=== PATIENT | male | born 1995 ===

== ENCOUNTER 2024-06-15 12:54 | Outpatient (CLI) | payer OTHER, SELFPAY ==
--- NOTE | 2024-06-15 13:26 | XRR_ITS ---
PROCEDURE INFORMATION: Exam: XR Right Wrist Exam date and time: 06/15/2024 1:35 PM Age: 29 years old Clinical indication: Pain; Wrist; Right; Additional info: Arthritis TECHNIQUE: Imaging protocol: Radiologic exam of the right wrist. Views: 1 or 2 views. COMPARISON: No relevant prior studies available. FINDINGS: Bones/joints: Alignment is normal. Joint spaces are preserved. No acute fracture. No osteophytes. Soft tissues: Visible soft tissues are unremarkable. XR/XR wrist RT 2V [id number] IMPRESSION: No pathologic findings.
--- NOTE | 2024-06-15 13:26 | XRR_ITS ---
PROCEDURE INFORMATION: Exam: XR Left Wrist Exam date and time: 06/15/2024 1:35 PM Age: 29 years old Clinical indication: Pain; Wrist; Bilateral; Additional info: Arthritis TECHNIQUE: Imaging protocol: Radiologic exam of the left wrist. Views: 1 or 2 views. COMPARISON: No relevant prior studies available. FINDINGS: Bones/joints: Mild ulna minus variance. Alignment is otherwise normal. Joint spaces are preserved. No osteophytes. No acute fracture. Soft tissues: Visible soft tissues are unremarkable. XR/XR wrist LT 2V [id number] IMPRESSION: 1. No sign of arthritis. 2. Mild ulna minus variance. This is a predisposing factor for avascular necrosis of the lunate which is not seen on this exam.
== END 2024-06-15 12:55 | disposition home or self-care (01) ==
PROVIDERS: PCP Chiropractor; Visit Provider Chiropractor
DX: M19.031 Primary osteoarthritis, right wrist (principal); M19.032 Primary osteoarthritis, left wrist
CPT/HCPCS: 73100